=== PATIENT | male | born 1955 | race Hispanic/Latino ===

== ENCOUNTER 2018-10-16 13:47 | Inpatient (IN) | payer MEDICARE ==
--- NOTE | 2018-10-16 15:05 | Emergency Department Report ---
ED General Adult HPI - General Chief complaint: Weakness Stated complaint: FAILURE TO THRIVE Time Seen by Provider: 10/16/18 14:56 Source: EMS (ems notes not available at time of chart dictation), RN notes reviewed, old records reviewed Mode of arrival: Stretcher Limitations: Altered Mental Status, Other (dementia, poor historian) - History of Present Illness Initial comments: This is a 62-year-old gentleman. The patient is not known to this provider previously. He is sent to the emergency room by his fpc physician, Dr. Bajwa, for admission for failure to thrive. The patient reportedly has a past medical history of dementia, being blind, seizure. Patient is nonverbal, does not respond to verbal instructions, and is not able to describe exacerbating or relieving factors, open-ended questions, we described a qualitative nature of his symptoms. His enclosed [facility]pc paperwork simply states "send residents to Hospital/ER departments for failure to thrive." -: unknown Radiation: other Quality: other Consistency: other Improves with: other Worsens with: other Associated Symptoms: other - Related Data Home Medications Medication Instructions Recorded Confirmed Last Taken Acetaminophen [Acetaminophen TAB] 325 mg PO Q6HR PRN 01/19/16 01/19/16 1 Day Ago ~01/18/16 Divalproex Sodium [Divalproex 500 mg PO TID 01/19/16 01/19/16 1 Day Ago Sodium ER] ~01/18/16 PARoxetine [Paxil] 20 mg PO DAILY 01/19/16 01/19/16 1 Day Ago ~01/18/16 Topiramate [Topamax] 200 mg PO BID 01/19/16 01/19/16 1 Day Ago ~01/18/16 Zonisamide 100 mg PO TID 01/19/16 01/19/16 1 Day Ago ~01/18/16 busPIRone [Buspar] 10 mg PO TID 01/19/16 01/19/16 1 Day Ago ~01/18/16 levETIRAcetam [Keppra TAB] 1,000 mg PO BID 01/19/16 01/19/16 1 Day Ago ~01/18/16 risperiDONE [RisperiDONE] 1 mg PO QHS 01/19/16 01/19/16 1 Day Ago ~01/18/16 Allergies Allergy/AdvReac Type Severity Reaction Status Date / Time phenobarbital Allergy Unknown Verified 01/14/16 17:03 ED Review of Systems ROS: Stated complaint: FAILURE TO THRIVE Other details as noted in HPI Comment: Unobtainable due to pts medical conditions ED Past Medical Hx - Past Medical History Hx Seizures: Yes Hx Psychiatric Treatment: Yes Additional medical history: blind, weakness in leg, ambulates with cane, cognitive impairment, dementia, gerd - Social History Smoking Status: Never Smoker - Medications Home Medications: Home Medications Medication Instructions Recorded Confirmed Last Taken Type Acetaminophen [Acetaminophen TAB] 325 mg PO Q6HR PRN 01/19/16 01/19/16 1 Day Ago History ~01/18/16 Divalproex Sodium [Divalproex 500 mg PO TID 01/19/16 01/19/16 1 Day Ago History Sodium ER] ~01/18/16 PARoxetine [Paxil] 20 mg PO DAILY 01/19/16 01/19/16 1 Day Ago History ~01/18/16 Topiramate [Topamax] 200 mg PO BID 01/19/16 01/19/16 1 Day Ago History ~01/18/16 Zonisamide 100 mg PO TID 01/19/16 01/19/16 1 Day Ago History ~01/18/16 busPIRone [Buspar] 10 mg PO TID 01/19/16 01/19/16 1 Day Ago History ~01/18/16 levETIRAcetam [Keppra TAB] 1,000 mg PO BID 01/19/16 01/19/16 1 Day Ago History ~01/18/16 risperiDONE [RisperiDONE] 1 mg PO QHS 01/19/16 01/19/16 1 Day Ago History ~01/18/16 ED Physical Exam - General Limitations: Altered Mental Status, Physical Limitation, Other (patient blind, patient demented. Does not follow commands. Moving 4 extremities spontaneously, and in response to pinch.) General appearance: in no apparent distress - Head Head exam: Present: atraumatic, normocephalic - Eye Eye exam: Present: other (patient closes his eyes tightly when I attempt to examine him. Unable to perform pupillary examination.). Absent: periorbital swelling, periorbital tenderness - ENT ENT exam: Present: mucous membranes dry, normal external ear exam - Neck Neck exam: Present: normal inspection, full ROM. Absent: tenderness, meningismus - Respiratory Respiratory exam: Present: normal lung sounds bilaterally. Absent: respiratory distress - Cardiovascular Cardiovascular Exam: Present: regular rate, normal rhythm, normal heart sounds. Absent: bradycardia, irregular rhythm, systolic murmur, diastolic murmur, rubs, gallop - GI/Abdominal GI/Abdominal exam: Present: soft. Absent: distended, tenderness, guarding, rebound, rigid, pulsatile mass - Rectal Rectal exam: Present: normal inspection, other (there is a lateral gluteal ecchymosis noted. There is no redness, pus or streaking.) - Extremities Exam Extremities exam: Present: normal inspection, other (2+ pulses noted in the bilateral upper, lower extremities. Compartments soft. No long bony tenderness. The pelvis is stable.). Absent: pedal edema, joint swelling, calf tenderness - Back Exam Back exam: Present: normal inspection. Absent: tenderness, CVA tenderness (R), paraspinal tenderness, vertebral tenderness - Neurological Exam Neurological exam: Present: altered, other (there is no facial droop. Moving 4 extremities spontaneously. reacts to painful stimuli by withdrawing for extremities. Sensation intact to pinch in 4 extremities) - Skin Skin exam: Present: dry ED Course Vital Signs 10/16/18 10/16/18 15:06 17:25 Temperature 99.0 F Pulse Rate 88 Respiratory 14 Rate Blood Pressure 131/84 O2 Sat by Pulse 99 Oximetry - Reevaluation(s) Reevaluation #1: 10/16/18 16:24 Differential diagnosis, including but limited to: Pneumonia, malnutrition, urinary tract infection, failure to thrive Assessment and plan: 62-year-old gentleman, with probable thyroid to thrive. He is afebrile with reassuring vital signs. The patient is demented and does not have decision-making capacity. He is hemodynamically stable and protecting his airway at this time. However, every time phlebotomy attempts to obtain laboratory studies, the patient withdraws his arm. He'll be medicated with Haldol to facilitate acquisition of serial diagnostics to exclude life-threatening laboratory abnormalities. We will contact his primary care doctor to arrange admission once his laboratory studies have resulted. Reevaluation #2: 10/16/18 17:[address] scan of the brain is negative. X-ray of the chest appears to be unremarkable. Laboratory studies show acute renal insufficiency, metabolic acidosis, likely secondary to acute renal insufficiency. IV fluids ordered. Urinalysis demonstrates 2+ bacteria, without other evidence of urinary tract infection, culture has been sent, suspect asymptomatic bacteriuria at this time. Nephrology has been paged, and patient's physician, Dr. Bajwa, has accepted the patient to his service. 10/16/18 17:44 We will defer to the inpatient team to follow up in the valproic acid level. Reevaluation #3: 10/16/18 18:10 Discussed with nephrology, Dr. López, who will follow in consultation. Reevaluation #4: 10/16/18 18:58 Lab Results 10/16/18 10/16/18 10/16/18 Range/Units 15:33 16:00 17:01 WBC 7.8 (4.5-11.0) K/mm3 RBC 3.97 (3.65-5.03) M/mm3 Hgb 13.9 (11.8-15.2) gm/dl Hct 41.9 (35.5-45.6) % MCV 106 H (84-94) fl MCH 35 H (28-32) pg MCHC 33 (32-34) % RDW 15.9 H (13.2-15.2) % Plt Count 140 (140-440) K/mm3 [place] % (Auto) Crib Pad Maker Sodium (137-145) mmol/L Potassium (3.6-5.0) mmol/L Chloride (98-107) mmol/L Carbon Dioxide (22-30) mmol/L Anion Gap mmol/L BUN (9-20) mg/dL Creatinine (0.8-1.5) mg/dL Estimated GFR ml/min BUN/Creatinine Ratio % Glucose (75-100) mg/dL POC Glucose 121 H (70-105) Lactic Acid (0.7-2.0) mmol/L Calcium (8.4-10.2) mg/dL Magnesium (1.7-2.3) mg/dL Total Bilirubin (0.1-1.2) mg/dL AST (5-40) units/L ALT (7-56) units/L Alkaline Phosphatase (35-129) units/L Total Creatine Kinase (55-170) units/L Total Protein (6.3-8.2) g/dL Albumin (3.9-5) g/dL Albumin/Globulin Ratio % Urine Color Yellow (Yellow) Urine Turbidity Clear (Clear) Urine pH 5.0 (5.0-7.0) Ur Specific [place] 1.019 (1.003-1.030) Urine Protein 30 mg/dl (Negative) mg/dL Urine Glucose (UA) 50 (Negative) mg/dL Urine Ketones Neg (Negative) mg/dL Urine Blood Neg (Negative) Urine Nitrite Neg (Negative) Urine Bilirubin Neg (Negative) Urine Urobilinogen < 2.0 (<2.0) mg/dL Ur Leukocyte Esterase Neg (Negative) Urine WBC (Auto) 2.0 (0.0-6.0) /HPF Urine RBC (Auto) 2.0 (0.0-6.0) /HPF U Epithel Cells (Auto) < 1.0 (0-13.0) /HPF Urine Bacteria (Auto) 2+ (Negative) /HPF Urine Mucus Few /HPF Valproic Acid (50-100) ug/mL 10/16/18 10/16/18 10/16/18 Range/Units 17:01 17:01 17:01 WBC (4.5-11.0) K/mm3 RBC (3.65-5.03) M/mm3 Hgb (11.8-15.2) gm/dl Hct (35.5-45.6) % MCV (84-94) fl MCH (28-32) pg MCHC (32-34) % RDW (13.2-15.2) % Plt Count (140-440) K/mm3 [place] % (Auto) Sodium 136 L (137-145) mmol/L Potassium 4.0 (3.6-5.0) mmol/L Chloride 96.1 L (98-107) mmol/L Carbon Dioxide 19 L (22-30) mmol/L Anion Gap 25 mmol/L BUN 73 H (9-20) mg/dL Creatinine 4.6 H (0.8-1.5) mg/dL Estimated GFR 13 ml/min BUN/Creatinine Ratio 16 % Glucose 116 H (75-100) mg/dL POC Glucose (70-105) Lactic Acid 2.00 (0.7-2.0) mmol/L Calcium 8.4 (8.4-10.2) mg/dL Magnesium 2.60 H (1.7-2.3) mg/dL Total Bilirubin 0.30 (0.1-1.2) mg/dL AST 40 (5-40) units/L ALT 11 (7-56) units/L Alkaline Phosphatase 49 (35-129) units/L Total Creatine Kinase 1190 H (55-170) units/L Total Protein 6.3 (6.3-8.2) g/dL Albumin 3.1 L (3.9-5) g/dL Albumin/Globulin Ratio 1.0 % Urine Color (Yellow) Urine Turbidity (Clear) Urine pH (5.0-7.0) Ur Specific [place] (1.003-1.030) Urine Protein (Negative) mg/dL Urine Glucose (UA) (Negative) mg/dL Urine Ketones (Negative) mg/dL Urine Blood (Negative) Urine Nitrite (Negative) Urine Bilirubin (Negative) Urine Urobilinogen (<2.0) mg/dL Ur Leukocyte Esterase (Negative) Urine WBC (Auto) (0.0-6.0) /HPF Urine RBC (Auto) (0.0-6.0) /HPF U Epithel Cells (Auto) (0-13.0) /HPF Urine Bacteria (Auto) (Negative) /HPF Urine Mucus /HPF Valproic Acid 94.3 (50-100) ug/mL ED Medical Decision Making - Lab Data Result diagrams: 10/16/18 17:01 10/16/18 17:01 Vital Signs 10/16/18 15:06 Pulse Rate 88 Respiratory 14 Rate Blood Pressure 131/84 O2 Sat by Pulse 99 Oximetry Rectal temperature is 99 degrees - EKG Data -: EKG Interpreted by Me - EKG Data 10/16/18 16:26 This is a normal sinus rhythm, ventricular rate 83 bpm, normal axis, motion artifact, T-wave abnormalities V3, V4, V5 and V6, abnormal EKG, not consistent with ST elevation myocardial infarction, appears changed when compared to prior EKG from January 2016. - Radiology Data Radiology results: report reviewed, image reviewed interpreted by me: X-ray of the chest is rotated, shows hyperinflated lungs, left-sided cardiac device noted, no obvious pneumothorax or infiltrate is noted. Noncontrast CT scan of the brain is negative for acute disease. Critical care attestation.: If time is entered above; I have spent that time in minutes in the direct care of this critically ill patient, excluding procedure time. ED Disposition Clinical Impression: RANDY (acute kidney injury), Failure to thrive Disposition: 09 OP ADMIT IP TO THIS HOSP Is pt being admited?: Yes Condition: Fair Referrals: PRIMARY CARE, [Referring] - 3-5 Days
[2018-10-16] MEDS ORDERED: D5/0.45NS 1,000 ML IV SCH (16:00)
[2018-10-16] MEDS ORDERED: HALDOL IM STA (16:19)
[2018-10-16 16:35] LABS: Bacteria,Urine 2+ /HPF (Negative); Bilirubin,Urine NEG (Negative); Blood,Urine NEG (Negative); Color,Urine Yellow (Yellow); Mucus,Urine FEW /HPF; Urobilinogen,Urine < 2.0 mg/dL (<2.0)
--- NOTE | 2018-10-16 17:12 | Cat Scan Report ---
PROCEDURE: CT head without contrast. TECHNIQUE: Computerized tomography of the head was performed without contrast material. CT DOSE LENGTH PRODUCT: 968.65 mGycm HISTORY: Altered mental status, weakness. COMPARISONS: CT head 01/18/2016. Dictation not available. FINDINGS: There is mild cerebral atrophy. The shelton matter and white matter appear normal. There are no mass les ions. There is no intracranial hemorrhage. The calvarium appears intact. The mastoid air cells and pa ranasal sinuses are clear as far as visualized. IMPRESSION: Normal study for age. This document is electronically signed by Deepak Resendiz MD., October 16 2018 05:09:50 PM ET
[2018-10-16 17:13] LABS: Hematocrit 41.9 % (35.5-45.6); Hemoglobin 13.9 gm/dl (11.8-15.2); Mean Corpuscular HGB Conc 33 % (32-34); Mean Corpuscular Volume 106 fl (84-94); Platelet Count 140 K/mm3 (140-440); Red Blood Count 3.97 M/mm3 (3.65-5.03); Red Cell Distribution Width 15.9 % (13.2-15.2)
[2018-10-16 17:30] LABS: Albumin 3.1 g/dL (3.9-5); Calcium 8.4 mg/dL (8.4-10.2)
[2018-10-16] MEDS ORDERED: NACL 0.9% 1000 ML 1,000 ML IV ONE (17:42)
--- NOTE | 2018-10-16 18:35 | XRay Report ---
PROCEDURE: XR CHEST 1V AP TECHNIQUE: Frontal view of the chest performed portably and upright HISTORY: ftt weak COMPARISONS: None FINDINGS: Normal heart size. Patient is rotated. Lungs are hyperlucent compatible with emphysema. Calcified granuloma left lung base. Bones are osteopenic. No pneumothorax or displaced rib fracture identified. Atypical type pacer device with generator pack over the left chest. IMPRESSION: Emphysema. No acute cardiopulmonary pathology. Pacer is present with a generator projecting over the left chest wall extending up to the left neck.. This document is electronically signed by Lisandra Junior MD., October 16 2018 06:32:56 PM ET
[2018-10-16 19:29] LABS: Anisocytosis 1+; Basophils % (Manual) 0 % (0.0-1.8); Eosinophils % (Manual) 0 % (0.0-4.3); Platelet Estimate Consistent w Auto; Total Cells Counted 100
[2018-10-16] MEDS ORDERED: NACL 0.9% 500 ML 500 ML IV ONE (20:11)
[2018-10-16] MEDS ORDERED: NACL 0.9% 500 ML 500 ML ONE (20:34)
[2018-10-16] MEDS: NACL 0.9% 1000 ML 1,000 ML IV SCH ×2 (21:17→22:59)
--- NOTE | 2018-10-16 21:23 | Consultation ---
History of Present Illness - Reason for Consult acute renal failure - History of Present Illness 62 year old with medical history signficant for Dementia,Seizure disorder admitted to the hospital for failure to thrive found to have acute kidney injury. He has altered mental status and review of systems unobtainable. [facility] and has not been eating or drinking for a while with deterioating clinical status. Medications and Allergies Allergies Allergy/AdvReac Type Severity Reaction Status Date / Time phenobarbital Allergy Unknown Verified 01/14/16 17:03 Home Medications Medication Instructions Recorded Confirmed Last Taken Type Acetaminophen [Acetaminophen TAB] 325 mg PO Q6HR PRN 01/19/16 01/19/16 1 Day Ago History ~01/18/16 Divalproex Sodium [Divalproex 500 mg PO TID 01/19/16 01/19/16 1 Day Ago History Sodium ER] ~01/18/16 PARoxetine [Paxil] 20 mg PO DAILY 01/19/16 01/19/16 1 Day Ago History ~01/18/16 Topiramate [Topamax] 200 mg PO BID 01/19/16 01/19/16 1 Day Ago History ~01/18/16 Zonisamide 100 mg PO TID 01/19/16 01/19/16 1 Day Ago History ~01/18/16 busPIRone [Buspar] 10 mg PO TID 01/19/16 01/19/16 1 Day Ago History ~01/18/16 levETIRAcetam [Keppra TAB] 1,000 mg PO BID 01/19/16 01/19/16 1 Day Ago History ~01/18/16 risperiDONE [RisperiDONE] 1 mg PO QHS 01/19/16 01/19/16 1 Day Ago History ~01/18/16 Active Meds: Active Medications Sodium Bicarbonate 150 meq/ (Dextrose) 1,150 mls @ 150 mls/hr IV DIRECT ELSIE Sodium Chloride (Nacl 0.9% 1000 Ml) 1,000 mls @ 0 mls/hr IV ONCE ELSIE Stop: 10/17/18 20:37 Last Admin: 10/16/18 21:17 Dose: 900 mls/hr Documented by: Review of Systems ROS unobtainable: due to mental status Exam - Vital Signs Vital signs: Vital Signs Pulse Resp BP Pulse Ox 91 H 13 131/84 79 L 10/16/18 14:45 10/16/18 14:45 10/16/18 14:45 10/16/18 14:45 - General Appearance General appearance: chronically ill, fatigue, frail, anxious EENT: ATNC, PERRL, mucous membranes dry Neck: Present: neck supple, trachea midline Respiratory: Clear to Ascultation Heart: regular, S1S2 Gastrointestinal: Present: normal, normoactive bowel sounds Integumentary: no rash Neurologic: confused, disoriented Musculoskeletal: Present: deferred Psychiatric: mood/affect appropriate Results - Lab Results 10/16/18 17:01 10/16/18 17:01 Most recent lab results Calcium 8.4 mg/dL (8.4-10.2) 10/16/18 17:01 Magnesium 2.60 mg/dL (1.7-2.3) H 10/16/18 17:01 Assessment and Plan - Patient Problems (1) RANDY (acute kidney injury) Current Visit: Yes Status: Acute Plan to address problem: Acute kidney injury baseline creatinine : 0.8mg/dl current creatinine : 4.9mg/dl 2/2 intravascular dehydration and intravascular depletion - will start saline infusion - continue bicarb infusion @150cc/hr - obtain renal US - Strict input and output - avoid nephrotoxins. (2) Altered mental status Current Visit: No Status: Acute Qualifiers: Altered mental status type: transient alteration of awareness Qualified Code(s): R40.4 - Transient alteration of awareness Plan to address problem: AMS - history of dementia , seizure diosorder and now with severe dehydration - UA with possible UTI - has been started on antibiotics for presumed UTI . (3) Lactic acidosis Current Visit: Yes Status: Acute Plan to address problem: Lactic acidosis - Severe lactic acidosis 2/2 volume depletion and impaired fusion - has received 1L bolus -Will give additional 2.5L bolus - recheck lactate levels. (4) Elevated CK Current Visit: Yes Status: Acute Plan to address problem: Elevated CK - possible mild rhabdomyolysis - fluid hydration as above.
[2018-10-16] MEDS ORDERED: HALDOL IM PRN (22:50)
--- NOTE | 2018-10-16 23:08 | History and Physical Report ---
History of Present Illness Date of examination: 10/16/18 Date of admission: 10/16/18 17:45 Chief complaint: Altered mental. History of present illness: Called on patient at the CT, [place], lethargic, sent to the ER, for eval, and w/up revealed severe dehydration, and pre renal azotemia. patient has not been accepting food/water at the CT.Lactic acid elevated, and UA revealed UTI. patient admitted for better management.nephrology consulted, /fluid challenge ag gressive hydration .He will be put on IV ABX.Once improved, will send back to the CT. will get nutrition /diet consult.Eventually, he will need a peg tube.For now, perhaps an NGT. Past History Past Medical History: CAD, seizures Social history: no significant social history, other ([facility]) Family history: no significant family history Medications and Allergies Allergies Allergy/AdvReac Type Severity Reaction Status Date / Time phenobarbital Allergy Unknown Verified 01/14/16 17:03 Home Medications Medication Instructions Recorded Confirmed Last Taken Type Acetaminophen [Acetaminophen TAB] 325 mg PO Q6HR PRN 01/19/16 01/19/16 1 Day Ago History ~01/18/16 Divalproex Sodium [Divalproex 500 mg PO TID 01/19/16 01/19/16 1 Day Ago History Sodium ER] ~01/18/16 PARoxetine [Paxil] 20 mg PO DAILY 01/19/16 01/19/16 1 Day Ago History ~01/18/16 Topiramate [Topamax] 200 mg PO BID 01/19/16 01/19/16 1 Day Ago History ~01/18/16 Zonisamide 100 mg PO TID 01/19/16 01/19/16 1 Day Ago History ~01/18/16 busPIRone [Buspar] 10 mg PO TID 01/19/16 01/19/16 1 Day Ago History ~01/18/16 levETIRAcetam [Keppra TAB] 1,000 mg PO BID 01/19/16 01/19/16 1 Day Ago History ~01/18/16 risperiDONE [RisperiDONE] 1 mg PO QHS 01/19/16 01/19/16 1 Day Ago History ~01/18/16 Active Meds: Active Medications Buspirone HCl (Buspar) 10 mg PO TID ELSIE Haloperidol Lactate (Haldol) 5 mg IM Q6H PRN PRN Reason: Agitation Heparin Sodium (Porcine) (Heparin) 5,000 unit SUB-Q Q12HR [facility] Sodium Bicarbonate 150 meq/ (Dextrose) 1,150 mls @ 150 mls/hr IV DIRECT ELSIE Sodium Chloride (Nacl 0.9% 1000 Ml) 1,000 mls @ 0 mls/hr IV ONCE ELSIE Stop: 10/17/18 20:37 Last Admin: 10/16/18 21:17 Dose: 900 mls/hr Documented by: Levetiracetam (Keppra) 1,000 mg PO BID [facility] Review of Systems Constitutional: fatigue, weakness Exam - Constitutional Vitals: Temp Pulse Resp BP Pulse Ox 97.5 F L 74 16 87/43 96 10/16/18 22:02 10/16/18 22:03 10/16/18 22:02 10/16/18 22:02 10/16/18 22:03 - EENT Eyes: Present: PERRL ENT: hearing intact, clear oral mucosa - Neck Neck: Present: supple, normal ROM - Respiratory Respiratory effort: normal Respiratory: bilateral: CTA - Cardiovascular Heart Sounds: Present: S1 & S2. Absent: rub, click - Extremities Extremities: pulses symmetrical, No edema Peripheral Pulses: within normal limits - Abdominal General gastrointestinal: Present: soft, non-tender, non-distended, normal bowel sounds Male genitourinary: Present: deferred - Rectal Rectal Exam: deferred - Integumentary Integumentary: Present: clear, warm, dry Results - Labs CBC & Chem 7: 10/16/18 17:01 10/16/18 17:01 Labs: Abnormal lab results 10/16/18 10/16/18 10/16/18 Range/Units 15:33 17:01 17:01 MCV 106 H (84-94) fl MCH 35 H (28-32) pg RDW 15.9 H (13.2-15.2) % Seg Neuts % (Manual) 71.0 H (40.0-70.0) % Monocytes % (Manual) 14.0 H (0.0-7.3) % Monocytes # (Manual) 1.1 H (0.0-0.8) K/mm3 Sodium 136 L (137-145) mmol/L Chloride 96.1 L (98-107) mmol/L Carbon Dioxide 19 L (22-30) mmol/L BUN 73 H (9-20) mg/dL Creatinine 4.6 H (0.8-1.5) mg/dL Glucose 116 H (75-100) mg/dL POC Glucose 121 H (70-105) Lactic Acid (0.7-2.0) mmol/L Magnesium 2.60 H (1.7-2.3) mg/dL Total Creatine Kinase 1190 H (55-170) units/L Albumin 3.1 L (3.9-5) g/dL 10/16/18 10/16/18 10/16/18 Range/Units 19:30 20:18 21:01 MCV (84-94) fl MCH (28-32) pg RDW (13.2-15.2) % Seg Neuts % (Manual) (40.0-70.0) % Monocytes % (Manual) (0.0-7.3) % Monocytes # (Manual) (0.0-0.8) K/mm3 Sodium (137-145) mmol/L Chloride (98-107) mmol/L Carbon Dioxide (22-30) mmol/L BUN (9-20) mg/dL Creatinine (0.8-1.5) mg/dL Glucose (75-100) mg/dL POC Glucose (70-105) Lactic Acid 4.60 H* 4.30 H* 4.40 H* (0.7-2.0) mmol/L Magnesium (1.7-2.3) mg/dL Total Creatine Kinase (55-170) units/L Albumin (3.9-5) g/dL Assessment and Plan - Patient Problems (1) RANDY (acute kidney injury) Current Visit: Yes Status: Acute Plan to address problem: Follow renal service. (2) Failure to thrive Current Visit: Yes Status: Acute Plan to address problem: Supportive care, see notes. (3) Altered mental status Current Visit: No Status: Acute Qualifiers: Altered mental status type: transient alteration of awareness Qualified Code(s): R40.4 - Transient alteration of awareness Plan to address problem: Due to UTI, present on admission. (4) Acute encephalopathy Current Visit: No Status: Acute Plan to address problem: supportive care. 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 (6) Dementia Current Visit: No Status: Chronic Plan to address problem: Supportive care. (7) Seizure disorder Current Visit: No Status: Chronic Plan to address problem: resume anti epileptics. (8) Sepsis Current Visit: Yes Status: Acute Plan to address problem: Tis is due to UTI, will place on ABX.This was present on admission.
[2018-10-17] MEDS: SODIUM BICARBONATE 150 MEQ in D5W 1,000 ML IV SCH ×2 (00:07→11:45)
[2018-10-17] MEDS ORDERED: NACL 0.9% 250ML 250 ML IV ONE (05:59)
[2018-10-17] MEDS: ROCEPHIN/NS 1 GM/50 ML 1 GM/50 ML BAG IV SCH (09:44)
[2018-10-17] MEDS: BUSPAR PO SCH ×3 (09:48→20:35)
[2018-10-17] MEDS: KEPPRA PO SCH ×2 (09:48→22:36)
--- NOTE | 2018-10-17 09:49 | Progress Note ---
Assessment and Plan Impression * Acute kidney injury. Baseline creatinine approximately 0.8 * Lactic acidosis * Altered mental status * Dementia * Seizure disorder Recommendations * Patient is currently nonoliguric and seems to be responding to IV fluid * Continue IV hydration * Acidosis is much improved and he is also getting hypokalemic. Discontinue bicarbonate drip for now * Monitor fluid status and electrolytes closely * Avoid nephrotoxins * Renal ultrasound is normal. Subjective Date of service: 10/17/18 Interval history: Patient remains nonverbal. Does not answer any questions. Indwelling Hurley catheter in place Objective - Vital Signs Vital signs: Vital Signs - 12hr 10/16/18 10/16/18 10/16/18 22:02 22:03 23:43 Temperature 97.5 F L 97.9 F Pulse Rate 76 74 73 Respiratory 16 18 Rate Blood Pressure 87/43 98/56 O2 Sat by Pulse 97 96 98 Oximetry 10/17/18 10/17/18 02:39 05:38 Temperature 98.0 F 98.1 F Pulse Rate 73 69 Respiratory 18 16 Rate Blood Pressure 83/40 79/45 O2 Sat by Pulse 96 97 Oximetry - General Appearance General appearance: well-developed, well-nourished, appears stated age EENT: PERRL, mucous membranes moist Neck: no JVD, no thyromegaly, no carotid bruit, supple Respiratory: Present: Clear to Ascultation Cardiology: regular, normal heart rate, S1S2, no murmurs Gastrointestinal: normal, normoactive bowel sounds Integumentary: other (no edema) - Lab 10/16/18 17:01 10/17/18 09:57 Most recent lab results Calcium 8.4 mg/dL (8.4-10.2) 10/16/18 17:01 Magnesium 2.60 mg/dL (1.7-2.3) H 10/16/18 17:01 Medications & Allergies - Medications Allergies/Adverse Reactions: Allergies phenobarbital Allergy (Verified 01/14/16 17:03) Unknown Home Medications: Home Medications Medication Instructions Recorded Confirmed Last Taken Type Acetaminophen [Acetaminophen TAB] 325 mg PO Q6HR PRN 01/19/16 01/19/16 1 Day Ago History ~01/18/16 Divalproex Sodium [Divalproex 500 mg PO TID 01/19/16 01/19/16 1 Day Ago History Sodium ER] ~01/18/16 PARoxetine [Paxil] 20 mg PO DAILY 01/19/16 01/19/16 1 Day Ago History ~01/18/16 Topiramate [Topamax] 200 mg PO BID 01/19/16 01/19/16 1 Day Ago History ~01/18/16 Zonisamide 100 mg PO TID 01/19/16 01/19/16 1 Day Ago History ~01/18/16 busPIRone [Buspar] 10 mg PO TID 01/19/16 01/19/16 1 Day Ago History ~01/18/16 levETIRAcetam [Keppra TAB] 1,000 mg PO BID 01/19/16 01/19/16 1 Day Ago History ~01/18/16 risperiDONE [RisperiDONE] 1 mg PO QHS 01/19/16 01/19/16 1 Day Ago History ~01/18/16 Active Medications: Generic Name Dose Route Start Last Admin Trade Name Freq PRN Reason Stop Dose Admin Buspirone HCl 10 mg 10/17/18 08:00 10/17/18 09:48 Buspar PO 10 mg TID ELSIE Administration Haloperidol Lactate 5 mg 10/16/18 22:50 Haldol IM Q6H PRN Agitation Heparin Sodium (Porcine) 5,000 unit 10/17/18 10:00 Heparin SUB-Q Q12HR ELSIE Sodium Bicarbonate 150 meq/ 1,150 mls @ 150 mls/hr 10/16/18 21:00 10/17/18 00:07 Dextrose IV 150 mls/hr DIRECT ELSIE Administration Sodium Chloride 1,000 mls @ 0 mls/hr 10/16/18 20:36 10/16/18 22:59 Nacl 0.9% 1000 Ml IV 10/17/18 20:37 900 mls/hr ONCE ELSIE Administration As Directed Ceftriaxone Sodium 1 gm in 50 mls @ 100 mls/hr 10/17/18 10:00 10/17/18 09:44 Rocephin/Ns 1 Gm/50 Ml IV 100 mls/hr Q24HR ELSIE Administration Protocol Levetiracetam 1,000 mg 10/17/18 10:00 10/17/18 09:48 Keppra PO 1,000 mg BID ELSIE Administration
[2018-10-17] MEDS: HEPARIN SUB-Q SCH ×2 (09:54→22:36)
[2018-10-17] MEDS ORDERED: NON-FORMULARY (Levetiracetam [Keppra Tab] 1,000 MG) PO SCH (10:00)
[2018-10-17 10:38] LABS: Albumin 2.2 g/dL (3.9-5); Calcium 7.3 mg/dL (8.4-10.2)
[2018-10-17] MEDS: KCL 10MEQ/100ML 10 MEQ/100 ML BAG IV SCH ×6 (13:33→19:15)
--- NOTE | 2018-10-17 14:43 | Ultrasound Report ---
Renal sonogram: History: RANDY Findings: Right kidney 9.2 x 4.6 x 4.4 cm due to cortical thickness 1.1 cm. Left kidney 9.1 x 5.2 x 5.3 cm. Cortical thickness is 1.4 cm. No mass. No hydronephrosis. Impression: No mass or hydronephrosis.
[2018-10-17] MEDS: NACL 0.9% 1000 ML 1,000 ML IV SCH (17:03)
[2018-10-17 19:30] LABS: Creatinine,Urine 85.4 mg/dL (0.1-20.0); Fractional Sodium Excretion 2.6
[2018-10-17] MEDS ORDERED: RisperDAL PO SCH (22:00)
--- NOTE | 2018-10-17 23:01 | Progress Note ---
Assessment and Plan - Patient Problems (1) RANDY (acute kidney injury) Current Visit: Yes Status: Acute Plan to address problem: Follow renal service. (2) Failure to thrive Current Visit: Yes Status: Acute Plan to address problem: Supportive care, see notes. (3) Altered mental status Current Visit: No Status: Acute Qualifiers: Altered mental status type: transient alteration of awareness Qualified Code(s): R40.4 - Transient alteration of awareness Plan to address problem: Due to UTI, present on admission. (4) Acute encephalopathy Current Visit: No Status: Acute Plan to address problem: supportive care. 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 (6) Dementia Current Visit: No Status: Chronic Plan to address problem: Supportive care. (7) Seizure disorder Current Visit: No Status: Chronic Plan to address problem: resume anti epileptics. (8) Sepsis Current Visit: Yes Status: Acute Plan to address problem: Tis is due to UTI, will place on ABX.This was present on admission. Subjective Date of service: 10/17/18 Principal diagnosis: Sepsis. Interval history: Patient seen/examined, resting in bed, records reviewed. Potassium replaced, and will re check in am.He is eating better, and will not need any peg tube after all. Objective - Constitutional Vitals: Vital Signs - 12hr 10/17/18 10/17/18 10/17/18 11:24 16:59 18:30 Temperature 98.3 F 98.8 F Pulse Rate 72 80 75 Respiratory 19 18 Rate Blood Pressure 96/44 82/41 Blood Pressure 97/53 [Left] O2 Sat by Pulse 97 95 Oximetry General appearance: Present: no acute distress, well-nourished - EENT Eyes: PERRL, EOM intact ENT: hearing intact, clear oral mucosa Ears: bilateral: normal - Neck Neck: supple, normal ROM - Respiratory Respiratory effort: normal Respiratory: bilateral: CTA - Breasts Breasts: deferred - Cardiovascular Rhythm: regular Heart Sounds: Present: S1 & S2. Absent: gallop, rub Extremities: pulses intact, No edema, normal color, Full ROM - Gastrointestinal General gastrointestinal: Present: soft, non-tender, non-distended, normal bowel sounds Rectal Exam: deferred - Genitourinary Male genitourinary: deferred - Integumentary Integumentary: clear, warm, dry - Musculoskeletal Musculoskeletal: 1, strength equal bilaterally - Neurologic Neurologic: moves all extremities - Labs CBC & Chem 7: 10/16/18 17:01 10/17/18 09:57 Labs: Abnormal lab results 10/17/18 10/17/18 10/17/18 Range/Units 09:50 09:57 11:12 Potassium 2.5 L* D (3.6-5.0) mmol/L BUN 43 H (9-20) mg/dL Creatinine 1.8 H (0.8-1.5) mg/dL Glucose 113 H (75-100) mg/dL POC Glucose 111 H (70-105) Calcium 7.3 L (8.4-10.2) mg/dL Alkaline Phosphatase 33 L (35-129) units/L Total Protein 4.2 L D (6.3-8.2) g/dL Albumin 2.2 L (3.9-5) g/dL Urine Creatinine 85.4 H (0.1-20.0) mg/dL Medications & Allergies - Medications Allergies/Adverse Reactions: Allergies phenobarbital Allergy (Verified 01/14/16 17:03) Unknown Home Medications: Home Medications Medication Instructions Recorded Confirmed Last Taken Type Acetaminophen [Acetaminophen TAB] 650 mg PO Q6HR PRN 01/19/16 10/17/18 1 Day Ago History ~01/18/16 Divalproex Sodium [Divalproex 500 mg PO TID 01/19/16 10/17/18 1 Day Ago History Sodium ER] ~01/18/16 Topiramate [Topamax] 200 mg PO BID 01/19/16 10/17/18 1 Day Ago History ~01/18/16 Zonisamide 100 mg PO TID 01/19/16 10/17/18 1 Day Ago History ~01/18/16 busPIRone [Buspar] 5 mg PO TID 01/19/16 10/17/18 1 Day Ago History ~01/18/16 levETIRAcetam [Keppra TAB] 1,000 mg PO BID 01/19/16 10/17/18 1 Day Ago History ~01/18/[address] [DepaKOTE DR] 500 mg PO TID 10/17/18 10/17/18 Unknown History Donepezil [Aricept] 5 mg PO QDAY 10/17/18 10/17/18 Unknown History LORazepam [Ativan] 1 mg PO DAILY PRN 10/17/18 10/17/18 Unknown History PARoxetine [Paxil] 10 mg PO DAILY 10/17/18 10/17/18 Unknown History risperiDONE [RisperDAL] 0.25 mg PO HS 10/17/18 10/17/18 Unknown History Active Medications: Generic Name Dose Route Start Last Admin Trade Name Paulinoq PRN Reason Stop Dose Admin Buspirone HCl 10 mg 10/17/18 08:00 10/17/18 20:35 Buspar PO 10 mg TID ELSIE Administration Haloperidol Lactate 5 mg 10/16/18 22:50 Haldol IM Q6H PRN Agitation Heparin Sodium (Porcine) 5,000 unit 10/17/18 10:00 10/17/18 22:36 Heparin SUB-Q 5,000 unit Q12HR ELSIE Administration Ceftriaxone Sodium 1 gm in 50 mls @ 100 mls/hr 10/17/18 10:00 10/17/18 09:44 Rocephin/Ns 1 Gm/50 Ml IV 100 mls/hr Q24HR ELSIE Administration Protocol Sodium Chloride 1,000 mls @ 125 mls/hr 10/17/18 17:00 10/17/18 17:03 Nacl 0.9% 1000 Ml IV 125 mls/hr DIRECT ELSIE Administration Levetiracetam 1,000 mg 10/17/18 10:00 10/17/18 22:36 Keppra PO 1,000 mg BID ELSIE Administration
[2018-10-17] MEDS ORDERED: ATIVAN PO PRN (23:04)
[2018-10-17] MEDS ORDERED: TYLENOL PO PRN (23:04)
[2018-10-18] MEDS: NACL 0.9% 1000 ML 1,000 ML IV SCH ×3 (01:22→21:47)
[2018-10-18 05:38] LABS: BUN/Creatinine Ratio 24; Blood Urea Nitrogen 22 mg/dL (9-20); Calcium 7.9 mg/dL (8.4-10.2); Hemolysis Index 9
[2018-10-18] MEDS ORDERED: ZONISAMIDE 100 MG PO SCH (08:00)
[2018-10-18] MEDS: BUSPAR PO SCH ×3 (08:53→21:48)
[2018-10-18 10:18] LABS: Alanine Aminotransferase 8 units/L (7-56); Albumin 2.2 g/dL (3.9-5); BUN/Creatinine Ratio 26; Blood Urea Nitrogen 18 mg/dL (9-20); Calcium 7.9 mg/dL (8.4-10.2); Hemolysis Index 13
[2018-10-18] MEDS: HEPARIN SUB-Q SCH ×2 (11:04→21:48)
[2018-10-18] MEDS: ROCEPHIN/NS 1 GM/50 ML 1 GM/50 ML BAG IV SCH (11:04)
[2018-10-18] MEDS: ARICEPT PO SCH (11:05)
[2018-10-18] MEDS: KEPPRA PO SCH ×2 (11:05→21:48)
[2018-10-18] MEDS: TOPAMAX PO SCH ×2 (11:05→21:56)
[2018-10-18] MEDS: PAXIL PO SCH (11:06)
--- NOTE | 2018-10-18 15:07 | Progress Note ---
Assessment and Plan Impression * Acute kidney injury. Baseline creatinine approximately 0.8 * Lactic acidosis * Altered mental status * Dementia * Seizure disorder Recommendations * Patient's renal function has improved significantly. Serum creatinine now back down to baseline. * Unsure about patient's oral intake. Reduce his IV fluid. * Acidosis has been corrected as well. Off bicarbonate drip. * Replace potassium replace potassium * Avoid nephrotoxins * Renal ultrasound is normal. * Shall sign off for now. Please recall if needed Subjective Date of service: 10/18/18 Principal diagnosis: Sepsis. Interval history: Patient is comfortable today. Arousable. Not answering any questions. Objective - Vital Signs Vital signs: Vital Signs - 12hr 10/18/18 10/18/18 10/18/18 04:15 09:11 12:13 Temperature 98.6 F 97.4 F L Pulse Rate 81 83 Respiratory 20 20 19 Rate Blood Pressure 83/45 104/44 O2 Sat by Pulse 94 94 95 Oximetry - General Appearance General appearance: well-developed, well-nourished, appears stated age EENT: PERRL, mucous membranes moist Neck: no JVD, no thyromegaly, no carotid bruit, supple Respiratory: Present: Clear to Ascultation Cardiology: regular, normal heart rate, S1S2, no murmurs Gastrointestinal: normal, normoactive bowel sounds - Lab 10/16/18 17:01 10/18/18 09:41 Most recent lab results Calcium 7.9 mg/dL (8.4-10.2) L 10/18/18 09:41 Magnesium 2.60 mg/dL (1.7-2.3) H 10/16/18 17:01 Urine Creatinine 85.4 mg/dL (0.1-20.0) H 10/17/18 09:50 Urine Sodium 70 mmol/L 10/17/18 09:50 Medications & Allergies - Medications Allergies/Adverse Reactions: Allergies phenobarbital Allergy (Verified 01/14/16 17:03) Unknown Home Medications: Home Medications Medication Instructions Recorded Confirmed Last Taken Type Acetaminophen [Acetaminophen TAB] 650 mg PO Q6HR PRN 01/19/16 10/17/18 1 Day Ago History ~01/18/16 Divalproex Sodium [Divalproex 500 mg PO TID 01/19/16 10/17/18 1 Day Ago History Sodium ER] ~01/18/16 Topiramate [Topamax] 200 mg PO BID 01/19/16 10/17/18 1 Day Ago History ~01/18/16 Zonisamide 100 mg PO TID 01/19/16 10/17/18 1 Day Ago History ~01/18/16 busPIRone [Buspar] 5 mg PO TID 01/19/16 10/17/18 1 Day Ago History ~01/18/16 levETIRAcetam [Keppra TAB] 1,000 mg PO BID 01/19/16 10/17/18 1 Day Ago History ~01/18/[address] [DepaKOTE DR] 500 mg PO TID 10/17/18 10/17/18 Unknown History Donepezil [Aricept] 5 mg PO QDAY 10/17/18 10/17/18 Unknown History LORazepam [Ativan] 1 mg PO DAILY PRN 10/17/18 10/17/18 Unknown History PARoxetine [Paxil] 10 mg PO DAILY 10/17/18 10/17/18 Unknown History risperiDONE [RisperDAL] 0.25 mg PO HS 10/17/18 10/17/18 Unknown History Active Medications: Generic Name Dose Route Start Last Admin Trade Name Freq PRN Reason Stop Dose Admin Acetaminophen 650 mg 10/17/18 23:04 Tylenol PO Q6H PRN Pain (1-3) Buspirone HCl 10 mg 10/17/18 08:00 10/18/18 14:40 Buspar PO 10 mg TID ELSIE Administration Divalproex Sodium 500 mg 10/18/18 08:00 10/18/18 14:40 Depakote Er PO 500 mg TID ELSIE Administration Donepezil HCl 5 mg 10/18/18 10:00 10/18/18 11:05 Aricept PO 5 mg QDAY ELSIE Administration Haloperidol Lactate 5 mg 10/16/18 22:50 Haldol IM Q6H PRN Agitation Heparin Sodium (Porcine) 5,000 unit 10/17/18 10:00 10/18/18 11:04 Heparin SUB-Q 5,000 unit Q12HR ELSIE Administration Ceftriaxone Sodium 1 gm in 50 mls @ 100 mls/hr 10/17/18 10:00 10/18/18 11:04 Rocephin/Ns 1 Gm/50 Ml IV 100 mls/hr Q24HR ELSIE Administration Protocol Sodium Chloride 1,000 mls @ 125 mls/hr 10/17/18 17:00 10/18/18 09:08 Nacl 0.9% 1000 Ml IV 125 mls/hr DIRECT ELSIE Administration Levetiracetam 1,000 mg 10/17/18 10:00 10/18/18 11:05 Keppra PO 1,000 mg BID ELSIE Administration Lorazepam 1 mg 10/17/18 23:04 Ativan PO DAILY PRN Agitation Miscellaneous Medication 100 mg 10/18/18 08:00 Zonisamide [Zonisamide] PO TID ELSIE Paroxetine HCl 10 mg 10/18/18 10:00 10/18/18 11:06 Paxil PO 10 mg DAILY ELSIE Administration Risperidone 0.25 mg 10/18/18 22:00 Risperdal PO HS ELSIE Topiramate 200 mg 10/18/18 10:00 10/18/18 11:05 Topamax PO 200 mg BID ELSIE Administration
[2018-10-18] MEDS ORDERED: K-DUR PO ONE (18:39)
--- NOTE | 2018-10-18 18:44 | Progress Note ---
Assessment and Plan - Patient Problems (1) RANDY (acute kidney injury) Current Visit: Yes Status: Acute Plan to address problem: Follow renal service. (2) Failure to thrive Current Visit: Yes Status: Acute Plan to address problem: Supportive care, see notes. (3) Altered mental status Current Visit: No Status: Acute Qualifiers: Altered mental status type: transient alteration of awareness Qualified Code(s): R40.4 - Transient alteration of awareness Plan to address problem: Due to UTI, present on admission. (4) Acute encephalopathy Current Visit: No Status: Acute Plan to address problem: supportive care. 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 (6) Dementia Current Visit: No Status: Chronic Plan to address problem: Supportive care. (7) Seizure disorder Current Visit: No Status: Chronic Plan to address problem: resume anti epileptics. (8) Sepsis Current Visit: Yes Status: Acute Plan to address problem: Tis is due to UTI, will place on ABX.This was present on admission. Subjective Date of service: 10/18/18 Principal diagnosis: Sepsis. Interval history: Patient seen/examined, resting in bed, records reviewed. Potassium replaced, and will re check in am.He is eating better, and will not need any peg tube after all. Patient seen/examined, resting in bed, labs/records reviewed, no new issues at this time. Objective - Constitutional Vitals: Vital Signs - 12hr 10/18/18 10/18/18 10/18/18 09:11 12:13 17:02 Temperature 97.4 F L 98.0 F Pulse Rate 83 Respiratory 20 19 16 Rate Blood Pressure 104/44 O2 Sat by Pulse 94 95 Oximetry General appearance: Present: no acute distress, well-nourished - EENT Eyes: PERRL, EOM intact ENT: hearing intact, clear oral mucosa Ears: bilateral: normal - Neck Neck: supple, normal ROM - Respiratory Respiratory effort: normal Respiratory: bilateral: CTA - Breasts Breasts: deferred - Cardiovascular Rhythm: regular Heart Sounds: Present: S1 & S2. Absent: gallop, rub Extremities: pulses intact, No edema, normal color, Full ROM - Gastrointestinal General gastrointestinal: Present: soft, non-tender, non-distended, normal bowel sounds Rectal Exam: deferred - Genitourinary Male genitourinary: deferred - Integumentary Integumentary: clear, warm, dry - Musculoskeletal Musculoskeletal: 1, strength equal bilaterally - Neurologic Neurologic: moves all extremities - Labs CBC & Chem 7: 10/16/18 17:01 10/18/18 09:41 Labs: Abnormal lab results 10/17/18 10/17/18 10/18/18 Range/Units 09:50 09:57 00:13 Potassium 2.5 L* D (3.6-5.0) mmol/L Chloride (98-107) mmol/L BUN 43 H (9-20) mg/dL Creatinine 1.8 H (0.8-1.5) mg/dL Glucose 113 H (75-100) mg/dL POC Glucose 106 H (70-105) Calcium 7.3 L (8.4-10.2) mg/dL Alkaline Phosphatase 33 L (35-129) units/L Total Protein 4.2 L D (6.3-8.2) g/dL Albumin 2.2 L (3.9-5) g/dL Urine Creatinine 85.4 H (0.1-20.0) mg/dL 10/18/18 10/18/18 Range/Units 04:25 09:41 Potassium 3.1 L D 3.4 L (3.6-5.0) mmol/L Chloride 107.7 H 108.7 H (98-107) mmol/L BUN 22 H (9-20) mg/dL Creatinine 0.7 L (0.8-1.5) mg/dL Glucose 101 H (75-100) mg/dL POC Glucose (70-105) Calcium 7.9 L 7.9 L (8.4-10.2) mg/dL Alkaline Phosphatase (35-129) units/L Total Protein 4.4 L (6.3-8.2) g/dL Albumin 2.2 L (3.9-5) g/dL Urine Creatinine (0.1-20.0) mg/dL Medications & Allergies - Medications Allergies/Adverse Reactions: Allergies phenobarbital Allergy (Verified 01/14/16 17:03) Unknown Home Medications: Home Medications Medication Instructions Recorded Confirmed Last Taken Type Acetaminophen [Acetaminophen TAB] 650 mg PO Q6HR PRN 01/19/16 10/17/18 1 Day Ago History ~07/05/16 Divalproex Sodium [Divalproex 500 mg PO TID 01/19/16 10/17/18 1 Day Ago History Sodium ER] ~01/18/16 Topiramate [Topamax] 200 mg PO BID 01/19/16 10/17/18 1 Day Ago History ~01/18/16 Zonisamide 100 mg PO TID 01/19/16 10/17/18 1 Day Ago History ~01/18/16 busPIRone [Buspar] 5 mg PO TID 01/19/16 10/17/18 1 Day Ago History ~01/18/16 levETIRAcetam [Keppra TAB] 1,000 mg PO BID 01/19/16 10/17/18 1 Day Ago History ~01/18/[address] [DepaKOTE DR] 500 mg PO TID 10/17/18 10/17/18 Unknown History Donepezil [Aricept] 5 mg PO QDAY 10/17/18 10/17/18 Unknown History LORazepam [Ativan] 1 mg PO DAILY PRN 10/17/18 10/17/18 Unknown History PARoxetine [Paxil] 10 mg PO DAILY 10/17/18 10/17/18 Unknown History risperiDONE [RisperDAL] 0.25 mg PO HS 10/17/18 10/17/18 Unknown History Active Medications: Generic Name Dose Route Start Last Admin Trade Name Freq PRN Reason Stop Dose Admin Acetaminophen 650 mg 10/17/18 23:04 Tylenol PO Q6H PRN Pain (1-3) Buspirone HCl 10 mg 10/17/18 08:00 10/18/18 14:40 Buspar PO 10 mg TID ELSIE Administration Divalproex Sodium 500 mg 10/18/18 08:00 10/18/18 14:40 Depakote Er PO 500 mg TID ELSIE Administration Donepezil HCl 5 mg 10/18/18 10:00 10/18/18 11:05 Aricept PO 5 mg QDAY ELSIE Administration Haloperidol Lactate 5 mg 10/16/18 22:50 Haldol IM Q6H PRN Agitation Heparin Sodium (Porcine) 5,000 unit 10/17/18 10:00 10/18/18 11:04 Heparin SUB-Q 5,000 unit Q12HR ELSIE Administration Ceftriaxone Sodium 1 gm in 50 mls @ 100 mls/hr 10/17/18 10:00 10/18/18 11:04 Rocephin/Ns 1 Gm/50 Ml IV 100 mls/hr Q24HR ELSIE Administration Protocol Sodium Chloride 1,000 mls @ 60 mls/hr 10/17/18 17:00 10/18/18 09:08 Nacl 0.9% 1000 Ml IV 125 mls/hr DIRECT ELSIE Administration Levetiracetam 1,000 mg 10/17/18 10:00 10/18/18 11:05 Keppra PO 1,000 mg BID ELSIE Administration Lorazepam 1 mg 10/17/18 23:04 Ativan PO DAILY PRN Agitation Miscellaneous Medication 100 mg 10/18/18 08:00 Zonisamide [Zonisamide] PO TID ELSIE Paroxetine HCl 10 mg 10/18/18 10:00 10/18/18 11:06 Paxil PO 10 mg DAILY ELSIE Administration Potassium Chloride 20 meq 10/18/18 18:39 K-Dur PO 10/18/18 18:40 ONCE ONE Risperidone 0.25 mg 10/18/18 22:00 Risperdal PO HS ELSIE Topiramate 200 mg 10/18/18 10:00 10/18/18 11:05 Topamax PO 200 mg BID ELSIE Administration
[2018-10-18] MEDS: RisperDAL PO SCH (21:48)
[2018-10-19 05:49] LABS: BUN/Creatinine Ratio 17; Blood Urea Nitrogen 10 mg/dL (9-20); Calcium 8.1 mg/dL (8.4-10.2); Hemolysis Index 66
[2018-10-19] MEDS ORDERED: D50W (25GM) Syringe IV ONE ×2 (06:13→06:23)
[2018-10-19] MEDS: ROCEPHIN/NS 1 GM/50 ML 1 GM/50 ML BAG IV SCH (10:38)
[2018-10-19] MEDS: KEPPRA PO SCH ×2 (10:39→21:34)
[2018-10-19] MEDS: ARICEPT PO SCH (10:40)
[2018-10-19] MEDS: TOPAMAX PO SCH ×2 (10:47→21:33)
[2018-10-19] MEDS: BUSPAR PO SCH ×3 (10:47→21:33)
[2018-10-19] MEDS: PAXIL PO SCH (10:48)
[2018-10-19 11:17] LABS: Alanine Aminotransferase 10 units/L (7-56); Albumin 2.6 g/dL (3.9-5); BUN/Creatinine Ratio 18; Blood Urea Nitrogen 9 mg/dL (9-20); Calcium 7.9 mg/dL (8.4-10.2); Hemolysis Index 23
[2018-10-19] MEDS: HEPARIN SUB-Q SCH ×2 (15:07→21:35)
--- NOTE | 2018-10-19 16:57 | Progress Note ---
Assessment and Plan - Patient Problems (1) RANDY (acute kidney injury) Current Visit: Yes Status: Acute Plan to address problem: Follow renal service. (2) Failure to thrive Current Visit: Yes Status: Acute Plan to address problem: Supportive care, see notes. (3) Altered mental status Current Visit: No Status: Acute Qualifiers: Altered mental status type: transient alteration of awareness Qualified Code(s): R40.4 - Transient alteration of awareness Plan to address problem: Due to UTI, present on admission. will recheck better. (4) Acute encephalopathy Current Visit: No Status: Acute Plan to address problem: supportive care. 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 (6) Dementia Current Visit: No Status: Chronic Plan to address problem: Supportive care. (7) Seizure disorder Current Visit: No Status: Chronic Plan to address problem: resume anti epileptics. (8) Sepsis Current Visit: Yes Status: Acute Plan to address problem: Tis is due to UTI, will place on ABX.This was present on admission. Subjective Date of service: 10/19/18 Principal diagnosis: Sepsis. Interval history: Patient seen/examined, resting in bed, records reviewed. Potassium replaced, and will re check in am.He is eating better, and will not need any peg tube after all. Patient seen/examined, resting in bed, labs/records reviewed, no new issues at this time. Patient seen/examined, resting in bed, NAD. labs reviewed, K, low at 3.1, and will replace.BG was low, and replaced.Will start planning dc, in the next day, or so.manager strategic development, to prepare for this. Objective - Constitutional Vitals: Vital Signs - 12hr 10/19/18 10/19/18 10/19/18 05:08 06:09 06:48 Temperature 98.7 F Pulse Rate 87 87 Respiratory 20 16 18 Rate Blood Pressure 115/36 119/52 Blood Pressure 164/95 [Left] O2 Sat by Pulse 95 96 Oximetry 10/19/18 10/19/18 11:07 11:27 Temperature 98.4 F Pulse Rate 73 Respiratory 12 Rate Blood Pressure 113/59 Blood Pressure [Left] O2 Sat by Pulse 92 Oximetry General appearance: Present: no acute distress - EENT Eyes: PERRL, EOM intact ENT: hearing intact, clear oral mucosa Ears: bilateral: normal - Neck Neck: supple, normal ROM - Respiratory Respiratory effort: normal Respiratory: bilateral: CTA - Breasts Breasts: deferred - Cardiovascular Rhythm: regular Heart Sounds: Present: S1 & S2. Absent: gallop, rub Extremities: pulses intact, No edema, normal color, Full ROM - Gastrointestinal General gastrointestinal: Present: soft, non-tender, non-distended, normal bowel sounds Rectal Exam: deferred - Genitourinary Male genitourinary: deferred - Integumentary Integumentary: clear, warm, dry - Musculoskeletal Musculoskeletal: 1, strength equal bilaterally - Neurologic Neurologic: moves all extremities - Psychiatric Psychiatric: memory intact, appropriate mood/affect, intact judgment & insight - Labs CBC & Chem 7: 10/16/18 17:01 10/19/18 10:39 Labs: Abnormal lab results 10/19/18 10/19/18 10/19/18 Range/Units 04:57 06:10 06:39 Potassium (3.6-5.0) mmol/L Chloride 109.6 H (98-107) mmol/L Creatinine 0.6 L (0.8-1.5) mg/dL POC Glucose 45 L 207 H (70-105) Calcium 8.1 L (8.4-10.2) mg/dL Total Protein (6.3-8.2) g/dL Albumin (3.9-5) g/dL 10/19/18 Range/Units 10:39 Potassium 3.1 L (3.6-5.0) mmol/L Chloride 109.5 H (98-107) mmol/L Creatinine 0.5 L (0.8-1.5) mg/dL POC Glucose (70-105) Calcium 7.9 L (8.4-10.2) mg/dL Total Protein 5.0 L (6.3-8.2) g/dL Albumin 2.6 L (3.9-5) g/dL Medications & Allergies - Medications Allergies/Adverse Reactions: Allergies phenobarbital Allergy (Verified 01/14/16 17:03) Unknown Home Medications: Home Medications Medication Instructions Recorded Confirmed Last Taken Type Acetaminophen [Acetaminophen TAB] 650 mg PO Q6HR PRN 01/19/16 10/17/18 1 Day Ago History ~01/18/16 Divalproex Sodium [Divalproex 500 mg PO TID 01/19/16 10/17/18 1 Day Ago History Sodium ER] ~01/18/16 Topiramate [Topamax] 200 mg PO BID 01/19/16 10/17/18 1 Day Ago History ~01/18/16 Zonisamide 100 mg PO TID 01/19/16 10/17/18 1 Day Ago History ~01/18/16 busPIRone [Buspar] 5 mg PO TID 01/19/16 10/17/18 1 Day Ago History ~01/18/16 levETIRAcetam [Keppra TAB] 1,000 mg PO BID 01/19/16 10/17/18 1 Day Ago History ~01/18/[address] [DepaKOTE DR] 500 mg PO TID 10/17/18 10/17/18 Unknown History Donepezil [Aricept] 5 mg PO QDAY 10/17/18 10/17/18 Unknown History LORazepam [Ativan] 1 mg PO DAILY PRN 10/17/18 10/17/18 Unknown History PARoxetine [Paxil] 10 mg PO DAILY 10/17/18 10/17/18 Unknown History risperiDONE [RisperDAL] 0.25 mg PO HS 10/17/18 10/17/18 Unknown History Active Medications: Generic Name Dose Route Start Last Admin Trade Name Freq PRN Reason Stop Dose Admin Acetaminophen 650 mg 10/17/18 23:04 Tylenol PO Q6H PRN Pain (1-3) Buspirone HCl 10 mg 10/17/18 08:00 10/19/18 15:07 Buspar PO 10 mg TID ELSIE Administration Divalproex Sodium 500 mg 10/18/18 08:00 10/19/18 15:07 Depakote Er PO 500 mg TID ELSIE Administration Donepezil HCl 5 mg 10/18/18 10:00 10/19/18 10:40 Aricept PO 5 mg QDAY ELSIE Administration Haloperidol Lactate 5 mg 10/16/18 22:50 Haldol IM Q6H PRN Agitation Heparin Sodium (Porcine) 5,000 unit 10/17/18 10:00 10/19/18 15:07 Heparin SUB-Q 5,000 unit Q12HR ELSIE Administration Ceftriaxone Sodium 1 gm in 50 mls @ 100 mls/hr 10/17/18 10:00 10/19/18 10:38 Rocephin/Ns 1 Gm/50 Ml IV 100 mls/hr Q24HR ELSIE Administration Protocol Sodium Chloride 1,000 mls @ 60 mls/hr 10/17/18 17:00 10/18/18 21:47 Nacl 0.9% 1000 Ml IV 125 mls/hr DIRECT ELSIE Administration Levetiracetam 1,000 mg 10/17/18 10:00 10/19/18 10:39 Keppra PO 1,000 mg BID ELSIE Administration Lorazepam 1 mg 10/17/18 23:04 Ativan PO DAILY PRN Agitation Miscellaneous Medication 100 mg 10/18/18 08:00 Zonisamide [Zonisamide] PO TID ELSIE Paroxetine HCl 10 mg 10/18/18 10:00 10/19/18 10:48 Paxil PO 10 mg DAILY ELSIE Administration Risperidone 0.25 mg 10/18/18 22:00 10/18/18 21:48 Risperdal PO Not Given HS ELSIE Topiramate 200 mg 10/18/18 10:00 10/19/18 10:47 Topamax PO 200 mg BID ELSIE Administration
[2018-10-19] MEDS: NACL 0.9% 1000 ML 1,000 ML IV SCH (17:29)
[2018-10-19] MEDS ORDERED: K-DUR PO ONE ×2 (18:00→22:30)
[2018-10-19] MEDS: RisperDAL PO SCH (21:34)
[2018-10-20] MEDS: ARICEPT PO SCH (09:06)
[2018-10-20] MEDS: KEPPRA PO SCH ×2 (09:06→22:20)
[2018-10-20] MEDS: BUSPAR PO SCH ×3 (09:07→22:20)
[2018-10-20] MEDS: PAXIL PO SCH (09:07)
[2018-10-20] MEDS: ROCEPHIN/NS 1 GM/50 ML 1 GM/50 ML BAG IV SCH (09:08)
[2018-10-20] MEDS: TOPAMAX PO SCH ×2 (09:10→22:20)
[2018-10-20 09:23] LABS: Alanine Aminotransferase 9 units/L (7-56); Albumin 2.3 g/dL (3.9-5); BUN/Creatinine Ratio 8; Blood Urea Nitrogen 4 mg/dL (9-20); Calcium 7.8 mg/dL (8.4-10.2); Hemolysis Index 10
[2018-10-20] MEDS: HEPARIN SUB-Q SCH ×2 (10:00→22:22)
--- NOTE | 2018-10-20 10:51 | Progress Note ---
Assessment and Plan - Patient Problems (1) RANDY (acute kidney injury) Current Visit: Yes Status: Acute Plan to address problem: Follow renal service. stable. (2) Failure to thrive Current Visit: Yes Status: Acute Plan to address problem: Supportive care, see notes. (3) Altered mental status Current Visit: No Status: Acute Qualifiers: Altered mental status type: transient alteration of awareness Qualified Code(s): R40.4 - Transient alteration of awareness Plan to address problem: Due to UTI, present on admission. will recheck better. (4) Acute encephalopathy Current Visit: No Status: Acute Plan to address problem: supportive care. 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 (6) Dementia Current Visit: No Status: Chronic Plan to address problem: Supportive care. (7) Seizure disorder Current Visit: No Status: Chronic Plan to address problem: resume anti epileptics. (8) Sepsis Current Visit: Yes Status: Acute Plan to address problem: Tis is due to UTI, will place on ABX.This was present on admission. Subjective Date of service: 10/20/18 Principal diagnosis: Sepsis. Interval history: Patient seen/examined, resting in bed, records reviewed. Potassium replaced, and will re check in am.He is eating better, and will not need any peg tube after all. Patient seen/examined, resting in bed, labs/records reviewed, no new issues at this time. Patient seen/examined, resting in bed, NAD. labs reviewed, K, low at 3.1, and will replace.BG was low, and replaced.Will start planning dc, in the next day, or so.contact manager, to prepare for this. Patient seen/examined, resting in bed, labs reviewed, will plan d/c back to the [place] tomorrow. contact manager to start plans for d/c/transportation. Objective - Constitutional Vitals: Vital Signs - 12hr 10/19/18 10/20/18 23:08 05:13 Temperature 99.1 F 98.1 F Pulse Rate 84 82 Respiratory 16 16 Rate Blood Pressure 104/62 111/58 O2 Sat by Pulse 99 96 Oximetry General appearance: Present: no acute distress, well-nourished - EENT Eyes: PERRL, EOM intact ENT: hearing intact, clear oral mucosa Ears: bilateral: normal - Neck Neck: supple, normal ROM - Respiratory Respiratory effort: normal Respiratory: bilateral: CTA - Breasts Breasts: deferred - Cardiovascular Rhythm: regular Heart Sounds: Present: S1 & S2. Absent: gallop, rub Extremities: pulses intact, No edema, normal color, Full ROM - Gastrointestinal General gastrointestinal: Present: soft, non-tender, non-distended, normal bowel sounds Rectal Exam: deferred - Genitourinary Male genitourinary: deferred - Integumentary Integumentary: clear, warm, dry - Musculoskeletal Musculoskeletal: 1, strength equal bilaterally - Neurologic Neurologic: moves all extremities - Psychiatric Psychiatric: appropriate mood/affect - Labs CBC & Chem 7: 10/16/18 17:01 10/20/18 08:11 Labs: Abnormal lab results 10/19/18 10/20/18 Range/Units 10:39 08:11 Potassium 3.1 L (3.6-5.0) mmol/L Chloride 109.5 H 114.9 H (98-107) mmol/L Carbon Dioxide 20 L (22-30) mmol/L BUN 4 L (9-20) mg/dL Creatinine 0.5 L 0.5 L (0.8-1.5) mg/dL Calcium 7.9 L 7.8 L (8.4-10.2) mg/dL Total Protein 5.0 L 4.6 L (6.3-8.2) g/dL Albumin 2.6 L 2.3 L (3.9-5) g/dL Medications & Allergies - Medications Allergies/Adverse Reactions: Allergies phenobarbital Allergy (Verified 01/14/16 17:03) Unknown Home Medications: Home Medications Medication Instructions Recorded Confirmed Last Taken Type Acetaminophen [Acetaminophen TAB] 650 mg PO Q6HR PRN 01/19/16 10/17/18 1 Day Ago History ~01/18/16 Divalproex Sodium [Divalproex 500 mg PO TID 01/19/16 10/17/18 1 Day Ago History Sodium ER] ~01/18/16 Topiramate [Topamax] 200 mg PO BID 01/19/16 10/17/18 1 Day Ago History ~01/18/16 Zonisamide 100 mg PO TID 01/19/16 10/17/18 1 Day Ago History ~01/18/16 busPIRone [Buspar] 5 mg PO TID 01/19/16 10/17/18 1 Day Ago History ~01/18/16 levETIRAcetam [Keppra TAB] 1,000 mg PO BID 01/19/16 10/17/18 1 Day Ago History ~01/18/[address] [DepaKOTE DR] 500 mg PO TID 10/17/18 10/17/18 Unknown History Donepezil [Aricept] 5 mg PO QDAY 10/17/18 10/17/18 Unknown History LORazepam [Ativan] 1 mg PO DAILY PRN 10/17/18 10/17/18 Unknown History PARoxetine [Paxil] 10 mg PO DAILY 10/17/18 10/17/18 Unknown History risperiDONE [RisperDAL] 0.25 mg PO HS 10/17/18 10/17/18 Unknown History Active Medications: Generic Name Dose Route Start Last Admin Trade Name Freq PRN Reason Stop Dose Admin Acetaminophen 650 mg 10/17/18 23:04 Tylenol PO Q6H PRN Pain (1-3) Buspirone HCl 10 mg 10/17/18 08:00 10/20/18 09:07 Buspar PO 10 mg TID ELSIE Administration Divalproex Sodium 500 mg 10/18/18 08:00 10/20/18 09:06 Depakote Er PO 500 mg TID ELSIE Administration Donepezil HCl 5 mg 10/18/18 10:00 10/20/18 09:06 Aricept PO 5 mg QDAY ELSIE Administration Haloperidol Lactate 5 mg 10/16/18 22:50 Haldol IM Q6H PRN Agitation Heparin Sodium (Porcine) 5,000 unit 10/17/18 10:00 10/19/18 21:35 Heparin SUB-Q 5,000 unit Q12HR ELSIE Administration Ceftriaxone Sodium 1 gm in 50 mls @ 100 mls/hr 10/17/18 10:00 10/20/18 09:08 Rocephin/Ns 1 Gm/50 Ml IV 100 mls/hr Q24HR ELSIE Administration Protocol Sodium Chloride 1,000 mls @ 60 mls/hr 10/17/18 17:00 10/19/18 17:29 Nacl 0.9% 1000 Ml IV 125 mls/hr DIRECT ELSIE Administration Levetiracetam 1,000 mg 10/17/18 10:00 10/20/18 09:06 Keppra PO 1,000 mg BID ELSIE Administration Lorazepam 1 mg 10/17/18 23:04 Ativan PO DAILY PRN Agitation Miscellaneous Medication 100 mg 10/18/18 08:00 Zonisamide [Zonisamide] PO TID ELSIE Paroxetine HCl 10 mg 10/18/18 10:00 10/20/18 09:07 Paxil PO 10 mg DAILY ELSIE Administration Risperidone 0.25 mg 10/18/18 22:00 10/19/18 21:34 Risperdal PO 0.25 mg HS ELSIE Administration Topiramate 200 mg 10/18/18 10:00 10/20/18 09:10 Topamax PO 200 mg BID ELSIE Administration
[2018-10-20] MEDS: RisperDAL PO SCH (22:20)
[2018-10-21 07:39] LABS: BUN/Creatinine Ratio 4; Blood Urea Nitrogen 2 mg/dL (9-20); Calcium 7.7 mg/dL (8.4-10.2); Hemolysis Index 4
[2018-10-21 11:04] LABS: Alanine Aminotransferase 8 units/L (7-56); Albumin 2.1 g/dL (3.9-5); BUN/Creatinine Ratio 4; Blood Urea Nitrogen 2 mg/dL (9-20); Calcium 7.8 mg/dL (8.4-10.2); Hemolysis Index 22
[2018-10-21] MEDS: ROCEPHIN/NS 1 GM/50 ML 1 GM/50 ML BAG IV SCH (11:21)
[2018-10-21] MEDS: ARICEPT PO SCH (11:26)
[2018-10-21] MEDS: KEPPRA PO SCH ×2 (11:26→21:55)
[2018-10-21] MEDS: BUSPAR PO SCH ×3 (11:27→20:45)
[2018-10-21] MEDS: TOPAMAX PO SCH ×2 (11:27→21:56)
[2018-10-21] MEDS: PAXIL PO SCH (11:28)
[2018-10-21] MEDS: HEPARIN SUB-Q SCH ×2 (11:28→21:57)
[2018-10-21] MEDS: NACL 0.9% 1000 ML 1,000 ML IV SCH (11:35)
[2018-10-21 16:42] VITALS: BP 106/53
--- NOTE | 2018-10-21 19:07 | Discharge Summary ---
Providers - Providers Date of Admission: 10/16/18 17:45 Date of discharge: 10/21/18 Attending physician: DARREL CLEARY 10/16/18 15:02 Consult to Physician [CONS] Urgent Comment: MD NOTIFIED 1739 Consulting Provider: DARREL CLEARY Physician Instructions: Reason For Exam: ftt 10/16/18 17:42 Consult to Physician [CONS] Urgent Comment: A/S NOTIFIED 1739 Consulting Provider: PIPER HARVEY Physician Instructions: Reason For Exam: randy 10/16/18 22:54 Consult to Dietitian/Nutrition [CONS] Routine Physician Instructions: Reason For Exam: Reason for Consult: Poor oral intake Primary care physician: DARREL CLEARY Hospitalization Reason for admission: Altered mental , dehydration. Condition: Stable Hospital course: Patient seen/examined, resting in bed, records reviewed. Patient had presented to the ER from the [place], for the reasons as above.He was dx, and treated with hydr ation, IV ABX for uti. monitored BG, and corrected.NAD , and clinically stable. I have d/w the [facility] cleaning supervisor, and ok to send back to night.I have spoken to the floor charge nurse about the plan, to transport back to the [place]. Disposition: DC/[place]-03 SNF [facility] CERT - Discharge Diagnoses (1) RANDY (acute kidney injury) Status: Chronic (2) Failure to thrive Status: Chronic (3) Altered mental status Status: Resolved Qualifiers: Altered mental status type: transient alteration of awareness Qualified Code(s): R40.4 - Transient alteration of awareness (4) Acute encephalopathy Status: Chronic (5) Blindness Status: Chronic (6) Dementia Status: Chronic (7) Seizure disorder Status: Chronic (8) Sepsis Status: Resolved Core Measure Documentation - Palliative Care Palliative Care/ Comfort Measures: Not Applicable - Core Measures Any of the following diagnoses?: none Exam - Constitutional Vitals: Temp Pulse Resp BP Pulse Ox 97.8 F 72 14 106/53 95 10/21/18 16:29 10/21/18 16:29 10/21/18 16:29 10/21/18 16:29 10/21/18 16:29 General appearance: Present: no acute distress, well-nourished - EENT Eyes: Present: PERRL ENT: hearing intact, clear oral mucosa - Neck Neck: Present: supple, normal ROM - Respiratory Respiratory effort: normal Respiratory: bilateral: CTA - Cardiovascular Heart Sounds: Present: S1 & S2. Absent: rub, click - Extremities Extremities: pulses symmetrical, No edema Peripheral Pulses: within normal limits - Abdominal General gastrointestinal: Present: soft, non-tender, non-distended, normal bowel sounds Male genitourinary: Present: deferred - Rectal Rectal Exam: deferred - Integumentary Integumentary: Present: clear, warm, dry - Neurologic Neurologic: moves all extremities Plan Activity: fall precautions Weight Bearing Status: Non-Weight Bearing Diet: diabetic Follow up with: PRIMARY CARE, [Referring] - 3-5 Days
[2018-10-21] MEDS: RisperDAL PO SCH (21:56)
== END 2018-10-21 22:45 | DRG 871 ==
LOC: ED 13:47 → 3A 17:45
PROVIDERS: ADMIT Internal Medicine Hematology & Oncology; ATTEND Internal Medicine Hematology & Oncology
DX: A41.9 Sepsis, unspecified organism (principal); G93.41 Metabolic encephalopathy; N17.9 Acute kidney failure, unspecified; E87.2 Acidosis; N39.0 Urinary tract infection, site not specified; G40.909 Epilepsy, unspecified, not intractable, without status epilepticus; E86.0 Dehydration; R62.7 Adult failure to thrive; H54.7 Unspecified visual loss; Z88.8 Allergy status to other drugs, medicaments and biological substances
CPT/HCPCS: 36415; 51702; 70450; 71045; 76770; 80048; 80053; 80164; 81001; 82140; 82550; 82565; 82570; 82962; 83735; 84295; 84300; 85007; 85025; 87086; 93005; 93010; G0378; J0696; J1630; J1644; J3480; J7030; J7040; J7050; J7070

== ENCOUNTER 2021-10-04 02:19 | Emergency (ER) | payer MEDICARE ==
[2021-10-04 02:56] VITALS: BP 110/70
--- NOTE | 2021-10-04 04:20 | Emergency Department Report ---
HPI - General Chief Complaint: Fall Time Seen by Provider: 10/04/21 03:45 - HPI HPI: Room 25 The patient is a 65-year-old male present with a chief complaint of head injury after fall. Patient is a [facility] resident and reportedly fell causing a la ceration to the forehead. Per the penitentiary the patient is at his neurological baseline which is nonverbal ED Past Medical Hx - Past Medical History Hx GERD: Yes Hx Seizures: Yes Hx Psychiatric Treatment: Yes (MDD, Anixety, Schiophrenia) Hx Dementia: Yes Additional medical history: blind, weakness in leg, ambulates with cane, cognitive impairment, dementia, gerd. Musclewasting and atrophy - Family History Family history: no significant - Social History Smoking Status: Never Smoker Substance Use Type: None - Medications Home Medications: Home Medications Medication Instructions Recorded Confirmed Last Taken Type Divalproex Dr [Depakote Dr] 500 mg PO TID 10/17/18 10/17/18 Unknown History Acetaminophen [Acetaminophen TAB] 650 mg PO Q6H PRN tablet 10/21/18 Unknown Rx Divalproex ER [Depakote ER] 500 mg PO TID tablet 10/21/18 Unknown Rx Haloperidol Lactate [Haldol] 5 mg IM Q6H PRN vial 10/21/18 Unknown Rx LORazepam [Ativan] 1 mg PO DAILY PRN tablet 10/21/18 Unknown Rx PARoxetine [Paxil] 10 mg PO DAILY tablet 10/21/18 Unknown Rx Topiramate [Topamax] 200 mg PO BID tablet 10/21/18 Unknown Rx Zonisamide [Zonisamide] 100 mg PO TID 10/21/18 Unknown Rx busPIRone [Buspar] 10 mg PO TID tablet 10/21/18 Unknown Rx donepeziL [Aricept] 5 mg PO QDAY tablet 10/21/18 Unknown Rx levETIRAcetam [Keppra TAB] 1,000 mg PO BID tablet 10/21/18 Unknown Rx risperiDONE [RisperDAL] 0.25 mg PO HS tablet 10/21/18 Unknown Rx ED Review of Systems ROS: Stated complaint: FALL Other details as noted in HPI Comment: Unobtainable due to pts medical conditions Physical Exam - Physical Exam Vital Signs: Vital Signs 10/04/21 02:53 Temperature 98.9 F Pulse Rate 58 L Respiratory 12 Rate Blood Pressure 110/70 [Right] O2 Sat by Pulse 94 Oximetry Physical Exam: GENERAL: The patient is well-developed well-nourished male sleeping on stretcher with head dressed HEENT: Normocephalic. Patient has moist mucous membranes. NECK: Supple. Trachea midline CHEST/LUNGS: Clear to auscultation. There is no respiratory distress noted. HEART/CARDIOVASCULAR: Regular. There is no tachycardia. There is no gallop rub or murmur. ABDOMEN: Abdomen is soft, nontender. Patient has normal bowel sounds. There is no abdominal distention. SKIN: There is no rash. There is no edema. There is no diaphoresis. NEURO: The patient is asleep MUSCULOSKELETAL: There is no deformity ED Course Vital Signs 10/04/21 02:53 Temperature 98.9 F Pulse Rate 58 L Respiratory 12 Rate Blood Pressure 110/70 [Right] O2 Sat by Pulse 94 Oximetry - Laceration /Wound Repair Left Face Wound Location: face Wound Length (cm): 5 Wound's Depth, Shape: linear Wound Explored: clean Irrigated w/ Saline (ccs): 500 Betadine Prep?: Yes Anesthesia: Lidocaine w/ Epi Volume Anesthetic (ccs): 5 (Lidocaine 2% with epi was mixed with bupivacaine 0.25% in a 1:1 ratio) Wound Repaired With: sutures Suture Size/Type: 6:0, nylon Number of Sutures: 4 Layer Closure?: No Sterile Dressing Applied?: Yes ED Medical Decision Making - Radiology Data Radiology results: report reviewed (CT head, CT cervical), image reviewed (CT head, CT cervical spine) [facility] [address] [place] [address] Cat Scan Report Signed Patient: OSCAR CANADA MR#: [id number] : 1955 Acct:[id number] Age/Sex: 65 / M ADM Date: 10/04/21 Loc: ED Attending Dr: Ordering Physician: MOLLY JAUREGUI MD Date of Service: 10/04/21 Procedure(s): CT head/brain wo con Accession Number(s): [id number] cc: MOLLY JARUEGUI MD CT HEAD WITHOUT CONTRAST INDICATION / CLINICAL INFORMATION: Head injury after a fall. TECHNIQUE: All CT scans at this location are performed using CT dose reduction for ALARA by means of automated exposure control. COMPARISON: 10/16/18. FINDINGS: HEMORRHAGE: None. EXTRA-AXIAL SPACES: Mildly prominent likely related to cortical atrophy. VENTRICULAR SYSTEM: Normal in size and morphology for the patient's age. CEREBRAL PARENCHYMA: No significant abnormality. No acute territorial infarct. MIDLINE SHIFT / HERNIATION: None. CEREBELLUM / BRAINSTEM: Moderate generalized cerebellar atrophy. ORBITS: Calcified left globe. Prior cataract surgery on the right. SOFT TISSUES: There is a small left frontoparietal scalp hematoma. SKULL: No significant abnormality. PARANASAL SINUSES / MASTOID AIR CELLS: Mild fluid in the mastoid air cells bilaterally, greater on the left. ADDITIONAL FINDINGS: None. IMPRESSION: 1. Small left frontoparietal scalp hematoma without skull fracture or intracranial hemorrhage. 2. Mild bilateral mastoiditis. Signer Name: Taj Oconnor MD Signed: 10/04/2021 5:07 AM Workstation Name: [id number] Transcribed By: RT Dictated By: Taj Oconnor MD Electronically Authenticated By: Taj Oconnor MD Signed Date/Time: 10/04/21506 DD/ 2 TD/TT: [facility] [address] [place] [address] Cat Scan Report Signed Patient: OSCAR CANADA MR#: [id number] : 1955 Acct:[id number] Age/Sex: 65 / M ADM Date: 10/04/21 Loc: ED Attending Dr: Ordering Physician: MOLLY JAUREGUI MD Date of Service: 10/04/21 Procedure(s): CT cervical spine wo con Accession Number(s): [id number] cc: MOLLY JAUREGUI MD CT CERVICAL SPINE WITHOUT CONTRAST INDICATION / CLINICAL INFORMATION: Neck injury after a fall. TECHNIQUE: Axial CT images were obtained through the cervical spine. Sagittal and coronal reformatted images were produced. All CT scans at this location are performed using CT dose reduction for ALARA by means of automated exposure control. COMPARISON: None available. FINDINGS: Moderate generalized spondylosis. No acute fracture or subluxation. No evidence of a focal disc herniation or epidural hematoma. The prevertebral soft tissues are normal. Localized 3.5 cm irregu lar masslike opacity in the left lung apex. There are small scattered calcifications within the abnormality. IMPRESSION: 1. Spondylosis without acute abnormality. 2. Incidental masslike opacity in the left lung apex is more likely inflammatory than neoplastic. Old studies would be helpful for comparison if available. Alternatively, PET imaging may be helpful in further characterization. Signer Name: Taj Oconnor MD Signed: 10/04/2021 5:15 AM Workstation Name: [id number] Transcribed By: RT Dictated By: Taj Oconnor MD Electronically Authenticated By: Taj Oconnor MD Signed Narciso e/Time: 10/04/2115 DD/ 050 TD/TT: - Differential Diagnosis ICH, closed head injury, forehead laceration, cervical fracture Critical care attestation.: If time is entered above; I have spent that time in minutes in the direct care of this critically ill patient, excluding procedure time. ED Disposition Clinical Impression: Closed head injury, Forehead laceration Disposition: 03 [facility] Is pt being admited?: No Does the pt Need Aspirin: No Condition: Stable Additional Instructions: You have 4 sutures placed. They need to be removed in 5 days. Your CAT scan showed a questionable mass like finding in the lungs versus inflammation and follow-up was recommended. You are being given a referral to a surgical garment inspector for further evaluation. Return to the emergency department should you develop worsening symptoms, inability to tolerate food or liquids, high fever or any other concerns Referrals: DAMEON DONAHUE MD [Staff Physician] - 3-5 Days (Dr. Donahue is a surgical garment inspector. Please follow-up with him for further evaluation of your CT scan findings) Time of Disposition: 05:30
[2021-10-04] MEDS ORDERED: BUPIVACAINE/PF (0.25%) 2.5 MG/ML 30 ML VIAL INFILTRATI ONE (04:46)
[2021-10-04] MEDS ORDERED: LIDOCAINE 2%/EPINEPHRINE 1:100,000 VIAL (20 ML) INFILTRATI ONE (04:46)
[2021-10-04] MEDS ORDERED: SODIUM CHLORIDE 0.9% IRR 500 ML BOTTLE IR ONE (04:47)
--- NOTE | 2021-10-04 05:12 | Cat Scan Report ---
CT HEAD WITHOUT CONTRAST INDICATION / CLINICAL INFORMATION: Head injury after a fall. TECHNIQUE: All CT scans at this location are performed using CT dose reduction for ALARA by means of automated exposure control. COMPARISON: 10/16/18. FINDINGS: HEMORRHAGE: None. EXTRA-AXIAL SPACES: Mildly prominent likely related to cortical atrophy. VENTRICULAR SYSTEM: Normal in size and morphology for the patient's age. CEREBRAL PARENCHYMA: No significant abnormality. No acute territorial infarct. MIDLINE SHIFT / HERNIATION: None. CEREBELLUM / BRAINSTEM: Moderate generalized cerebellar atrophy. ORBITS: Calcified left globe. Prior cataract surgery on the right. SOFT TISSUES: There is a small left frontoparietal scalp hematoma. SKULL: No significant abnormality. PARANASAL SINUSES / MASTOID AIR CELLS: Mild fluid in the mastoid air cells bilaterally, greater on th e left. ADDITIONAL FINDINGS: None. IMPRESSION: 1. Small left frontoparietal scalp hematoma without skull fracture or intracranial hemorrhage. 2. Mild bilateral mastoiditis. Signer Name: Taj Oconnor MD Signed: 10/04/2021 5:07 AM Workstation Name: [id number]
--- NOTE | 2021-10-04 05:19 | Cat Scan Report ---
CT CERVICAL SPINE WITHOUT CONTRAST INDICATION / CLINICAL INFORMATION: Neck injury after a fall. TECHNIQUE: Axial CT images were obtained through the cervical spine. Sagittal and coronal reformatted images were produced. All CT scans at this location are performed using CT dose reduction for ALARA by means of automated exposure control. COMPARISON: None available. FINDINGS: Moderate generalized spondylosis. No acute fracture or subluxation. No evidence of a focal disc herni ation or epidural hematoma. The prevertebral soft tissues are normal. Localized 3.5 cm irregular mass like opacity in the left lung apex. There are small scattered calcifications within the abnormality. IMPRESSION: 1. Spondylosis without acute abnormality. 2. Incidental masslike opacity in the left lung apex is more likely inflammatory than neoplastic. Old studies would be helpful for comparison if available. Alternatively, PET imaging may be helpful in f urther characterization. Signer Name: Taj Oconnor MD Signed: 10/04/2021 5:15 AM Workstation Name: [id number]
== END 2021-10-04 06:55 ==
LOC: ED 02:19
DX: S01.81XA Laceration without foreign body of other part of head, initial encounter (principal); S09.90XA Unspecified injury of head, initial encounter; X58.XXXA Exposure to other specified factors, initial encounter; Y93.89 Activity, other specified; Y92.89 Other specified places as the place of occurrence of the external cause; Y99.8 Other external cause status
CPT/HCPCS: 12013; 70450; 72125; 99284; J3490